=== PATIENT | female | born 1995 | race African-American/Black ===

== ENCOUNTER 2020-06-27 01:25 | Emergency (ER) | payer SELFPAY ==
[~2020-06-27] VITALS: Ht 165.1 cm; Wt 62.6 kg
[2020-06-27 01:38] VITALS: BP 0/0
[2020-06-27 01:40] VITALS: BP 0/0
== END 2020-06-27 01:31 ==
LOC: MED 01:25
DX: Z04.1 Encounter for examination and observation following transport accident (principal); Z02.89 Encounter for other administrative examinations
CPT/HCPCS: 99283